=== PATIENT | female | born 1980 | race Caucasian/White ===

== ENCOUNTER 2017-07-24 14:52 | Emergency (ER) | payer OTHER ==
[~2017-07-24] VITALS: Ht 157.5 cm; Wt 56.7 kg
--- NOTE | ~2017-07-24 | EKG ---
[place] [address] [facility] [place] [address] ELECTROCARDIOGRAM REPORT Name: CORALSANTINO Mariel Room #: 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
[2017-07-24] MEDS ORDERED: ANTIVERT25 MG PO (16:11)
[2017-07-24 16:25] VITALS: BP 138/99
== END 2017-07-24 16:26 | disposition home or self-care (01) ==
LOC: ER 14:52
DX: F15.180 Other stimulant abuse with stimulant-induced anxiety disorder (principal); G40.909 Epilepsy, unspecified, not intractable, without status epilepticus; F17.210 Nicotine dependence, cigarettes, uncomplicated